=== PATIENT | female | born 2000 | race Caucasian/White ===

== ENCOUNTER 2020-10-10 14:29 | Emergency (ER) | payer OTHER, SELFPAY ==
[2020-10-10 14:47] VITALS: BP 120/73; PULSE 95; RESP 16; TEMP 36.6; O2SAT 100
--- NOTE | 2020-10-10 15:06 | ED.URI ---
HPI - URI/Sore Throat General Chief Complaint: Upper Respiratory Infection Stated Complaint: upper resp symptoms Source: patient Mode of arrival: ambulatory Limitations: no limitations History of Present Illness HPI Narrative: Patient is a 20-year-old female who presents complaining of fever and headache x1 to 2 days. Patient denies known exposure to Covid. Patient reports temp of 101 yesterday. Reports awaking this morning without fever but increased headache. Patient reports headache pain is 8/10. She denies taking any pyka-hre-cyrfpad medications at this time. MD elicited complaint: fever Related Data Home Medications Medication Instructions Recorded Confirmed No Home Medications 10/10/20 10/10/20 Allergies Allergy/AdvReac Type Severity Reaction Status Date / Time No Known Allergies Allergy Unknown Unverified 11/28/17 12:37 Review of Systems Review of Systems: Narrative: CONSTITUTIONAL: Reports fever EYES: Denies visual changes, redness, or discharge. ENT: Denies rhinorrhea, congestion, sore throat, or otalgia. CARDIOVASCULAR: Denies chest pain, palpitations, or edema. RESPIRATORY: Denies cough or dyspnea. GASTROINTESTINAL: Denies abdominal pain, nausea, vomiting, or diarrhea. GENITOURINARY: Denies dysuria or hematuria. SKIN: Denies rash or itching. MUSCULOSKELETAL: Denies back pain, joint pain, or myalgia. NEUROLOGIC: Reports headache. PSYCHIATRIC: Denies anxiety or depression. PMFSH Past Medical History Medical History (Updated 10/10/20 @ 15:18 by ELHAM Sena) No significant past medical history Surgical History Surgical History (Updated 10/10/20 @ 15:08 by ELHAM Sena) No history of previous surgery Family History Family History (Updated 10/10/20 @ 15:09 by ELHAM Sena) Other No significant family history Social History Social History (Updated 10/10/20 @ 15:09 by ELHAM Sena) Smoking status: Never smoker Alcohol intake: never Substance use: never Living arrangements: with family Occupation/Education: student Exam Narrative: Exam Narrative: GENERAL: Well-appearing, well-nourished, and in no acute distress. HEAD: Normocephalic, atraumatic. EYES: No redness or drainage. Conjunctiva are normal. ENT: Mucous membranes pink and moist. Nares clear. No rhinorrhea. Throat mild erythema, no edema or exudate. Uvula midline. NECK: AROM. Supple. No lymphadenopathy. CHEST: No respiratory distress. HEART: Regular rate and rhythm. EXTREMITIES: Normal range of motion. No edema. SKIN: Warm, dry, no rash. NEURO: No focal deficits. Alert and oriented x3. Gait steady. PSYCH: Normal affect. No signs of depression or anxiety. Course Vital Signs Vital signs: Vital Signs Temperature 36.6 C 10/10/20 14:47 Pulse Rate 95 10/10/20 14:47 Respiratory Rate 16 10/10/20 14:47 Blood Pressure 120/73 10/10/20 14:47 Pulse Oximetry 100 10/10/20 14:47 Temperature 36.6 C 10/10/20 14:47 Pulse Rate 95 10/10/20 14:47 Respiratory Rate 16 10/10/20 14:47 Blood Pressure 120/73 10/10/20 14:47 Pulse Oximetry 100 10/10/20 14:47 Reviewed. MDM - URI/Sore Throat MDM Narrative Medical decision making narrative: Patient's rapid strep and influenza are negative at this time. Discussed Covid testing with patient. Patient requesting Covid testing at this time, instructions given for [facility] Covid testing. Patient is aware of the need for quarantine. Patient is stable for discharge to home with outpatient follow-up as needed. Differential Diagnosis Differential diagnosis: Likely upper respiratory infection, sinusitis, viral infection, bronchitis, influenza and pharyngitis Critical Care Time Critical Care Time Critical Care Time: No Discharge Plan Discharge Clinical Impression: Upper respiratory infection Qualifiers: URI type: unspecified viral URI Qualified Code(s): J06.9 - Acute upper respiratory infection, u
== END 2020-10-10 15:28 | disposition home or self-care (01) ==
PROVIDERS: Emergency Provider Nurse Practitioner; PCP Pediatrics
DX: J06.9 Acute upper respiratory infection, unspecified (principal); Z20.828 Contact with and (suspected) exposure to other viral communicable diseases
CPT/HCPCS: 87081; 87804; 87880; 99213; G0463

== ENCOUNTER 2020-10-11 08:08 | Outpatient (NON) | payer OTHER, SELFPAY ==
[2020-10-11 17:11] LABS: SARS-CoV-2 RNA PCR Negative
== END 2020-10-11 08:09 ==
LOC: ANHCOVIDDT 08:09
PROVIDERS: PCP Pediatrics; Visit Provider Nurse Practitioner
DX: J06.9 Acute upper respiratory infection, unspecified (principal); Z20.828 Contact with and (suspected) exposure to other viral communicable diseases
CPT/HCPCS: 87635; C9803; U0003

== ENCOUNTER 2023-01-13 12:51 | Emergency (ER) | payer OTHER, SELFPAY ==
[2023-01-13 13:08] VITALS: BP 129/80; PULSE 82; RESP 16; TEMP 36.1; O2SAT 100
--- NOTE | 2023-01-13 13:24 | ED.GENADULT ---
HPI - General Adult General Chief complaint: Urogenital-Female Stated complaint: uti symptoms Time Seen by Provider: 01/13/23 13:24 Source: patient Mode of arrival: ambulatory Limitations: no limitations History of Present Illness HPI narrative: 22-year-old female patient presents to the [facility] with complaints of urinary symptoms that started yesterday. Patient states is just feeling uncomfortable at times when she pees. Denies any frequency or urgency. Denies any burning pain with urination. Denies any low back pain. Denies any fevers, body aches or chills. Patient states she is sexually active and does use condoms and she is on control. Last menstrual cycle was December 27. Patient does not have any concerns for STDs or at this time. Related Data Home Medications Medication Instructions Recorded Confirmed No Home Medications 10/10/20 01/13/23 Allergies Allergy/AdvReac Type Severity Reaction Status Date / Time acetaminophen [From NyQuil] AdvReac Unknown Verified 01/13/23 13:15 dextromethorphan AdvReac Unknown Verified 01/13/23 13:15 [From NyQuil] doxylamine [From NyQuil] AdvReac Unknown Verified 01/13/23 13:15 ibuprofen AdvReac Unknown Verified 01/13/23 13:15 [From DayQuil Sinus Pressure/Pain] pseudoephedrine AdvReac Unknown Verified 01/13/23 13:15 [From DayQuil Sinus Pressure/Pain] Review of Systems Review of Systems: CONSTITUTIONAL: Denies fever, chills, or sweats. EYES: Denies visual changes, redness, or discharge. ENT: Denies rhinorrhea, congestion, sore throat, or otalgia. CARDIOVASCULAR: Denies chest pain, palpitations, or edema. RESPIRATORY: Denies cough or dyspnea. GASTROINTESTINAL: Denies abdominal pain, nausea, vomiting, or diarrhea. GENITOURINARY: Positive dysuria, denies hematuria. SKIN: Denies rash or itching. MUSCULOSKELETAL: Denies back pain, joint pain, or myalgia. NEUROLOGIC: Denies headache, numbness, or weakness. PSYCHIATRIC: Denies anxiety or depression. [facility] Past Medical History Medical History No significant past medical history Surgical History Surgical History No history of previous surgery Family History Family History Other No significant family history Social History Social History Smoking status: Never smoker Alcohol intake: never Substance use: never Living arrangements: with family Occupation/Education: student Comments At the time of my signature I agree with nursing past medical history, surgical, social, and family history. There is no relevant family history pertinent to the presenting complaint. Exam Narrative: GENERAL: Well-appearing, well-nourished, and in no acute distress. HEAD: Normocephalic, atraumatic. EYES: PERRLA and EOMI. ENT: Nares clear, no rhinorrhea or epistaxis. Mucous membranes moist. NECK: Supple. No lymphadenopathy CHEST: Clear to auscultation. No respiratory distress. HEART: Regular rate and rhythm. No murmur heard. Normal peripheral pulses. ABDOMEN: Soft, nontender, nondistended, normal active bowel sounds. no CVA tenderness on percussion. No suprapubic pain on palpation. EXTREMITIES: Normal range of motion. No edema. SKIN: Warm, dry, no rash. NEURO: No focal deficits. Alert and oriented x3. Course Course Level of Care: Express Care Visit Vital Signs Vital signs: Vital Signs Temperature 36.1 C L 01/13/23 13:08 Pulse Rate 82 01/13/23 13:08 Respiratory Rate 16 01/13/23 13:08 Blood Pressure 129/80 01/13/23 13:08 Pulse Oximetry 100 01/13/23 13:08 Oxygen Delivery Room Air 01/13/23 13:08 Temperature 36.1 C L 01/13/23 13:08 Pulse Rate 82 01/13/23 13:08 Respiratory Rate 16 01/13/23 13:08 Blood Pressure 129/80 01/13/23
== END 2023-01-13 13:49 | disposition home or self-care (01) ==
PROVIDERS: Emergency Provider Nurse Practitioner Family; PCP Internal Medicine
DX: R30.0 Dysuria (principal)
CPT/HCPCS: 81003; 81025; 87086; 99213; G0463